=== PATIENT | male | born 1975 | race American Indian/Alaskan Native ===

== ENCOUNTER 2019-02-22 08:28 | Day surgery (SDC) | payer MEDICARE, OTHER ==
[2019-02-22] MEDS ORDERED: LACTATED RINGERS 1,000 ML IV SCH (10:00)
[2019-02-22] MEDS ORDERED: ANCEF/STERILE WATER 2 GM/20 ML IV NR (10:00)
--- NOTE | 2019-02-22 10:25 | Anesthesia Day of Surgery ---
Anesthesia Day of Surgery - Day of Surgery Patient Examined: Yes Patient H&P Reviewed: Yes Patient is NPO: Yes
--- NOTE | 2019-02-22 10:25 | Anesthesia Consultation ---
Anesthesia Consult and Med Hx Date of service: 02/22/19 - Airway Anesthetic Teeth Evaluation: Edentulous ROM Head & Neck: Adequate Mental/Hyoid Distance: Adequate Mallampati Class: Class I Intubation Access Assessment: Good - Pulmonary Exam CTA: Yes - Cardiac Exam Cardiac Exam: RRR - Pre-Operative Health Status ASA Pre-Surgery Classification: ASA3 Proposed Anesthetic Plan: General, MAC - Pulmonary Hx Smoking: No Hx Respiratory Symptoms: No COPD: No - Cardiovascular System Hx Hypertension: No Hx Heart Attack/AMI: No Hx Percutaneous Transluminal Coronary Angioplasty (PTCA): No Hx Cardia Arrhythmia: No - Central Nervous System Hx Seizures: No CVA: Yes (2005; mild residual right sided weakness ) - Gastrointestinal Hx Gastroesophageal Reflux Disease: Yes (well controlled) - Endocrine Hx Renal Disease: No (patient denies) Hx Liver Disease: No Hx Insulin Dependent Diabetes: No Hx Non-Insulin Dependent Diabetes: No Hx Thyroid Disease: No - Other Systems Hx Alcohol Use: Yes Hx Substance Use: Yes (last cocaine use 1 week ago) Hx Obesity: No - Additional Comments Anesthesia Medical History Comments: No hx anesthetic complications.
[2019-02-22] MEDS ORDERED: VERSED IV SCH (11:00)
[2019-02-22] MEDS ORDERED: XYLOCAINE MPF 2% ONE (11:08)
[2019-02-22] MEDS ORDERED: DIPRIVAN 10 MG/ML IV ONE (11:09)
[2019-02-22] MEDS ORDERED: DILAUDID ONE (11:09)
[2019-02-22] MEDS ORDERED: VERSED ONE (11:10)
[2019-02-22] MEDS ORDERED: NACL 0.9% IR ONE (11:21)
[2019-02-22] MEDS ORDERED: XYLOCAINE 1% 20 mL INFILTRATI ONE (11:40)
[2019-02-22] MEDS ORDERED: MARCAINE 0.5% INFILTRATI ONE (11:40)
--- NOTE | 2019-02-22 11:48 | Short Stay Summary ---
Short Stay Documentation Date of service: 02/22/19 - History Principal diagnosis: soft tissue mass right neck H&P: obtained from office - Allergies and Medications Current Medications: Allergies No Known Allergies Allergy (Verified 02/21/19 16:27) Home Medications Medication Instructions Recorded Confirmed Last Taken Type Atazanavir Sulfate [Reyataz] 300 mg PO QDAY 02/21/19 02/21/19 Unknown History Cholecalciferol Vit D3 [Vitamin D3 1,000 unit PO QDAY 02/21/19 02/21/19 Unknown History 1,000 UNIT TAB] Emtricitabine [Emtriva] 200 mg PO QDAY 02/21/19 02/21/19 Unknown History Folic Acid [Folvite] 1 mg PO QDAY 02/21/19 02/21/19 Unknown History Ranitidine HCl [Zantac 150 MG TAB] 150 mg PO QHS 02/21/19 02/21/19 Unknown History Ritonavir [Norvir] 100 mg PO QDAY 02/21/19 02/21/19 Unknown History Rosuvastatin Calcium [Crestor] 40 mg PO QHS 02/21/19 02/21/19 Unknown History Active Medications Cefazolin Sodium (Ancef/Sterile Water 2 Gm/20 Ml) 2 gm IV PREOP NR Stop: 02/22/19 14:00 Lactated Ringer's (Lactated Ringers) 1,000 mls @ 75 mls/hr IV DIRECT ARLIN Last Admin: 02/22/19 09:50 Dose: 75 mls/hr Documented by: Midazolam HCl (Versed) 2 mg IV PREOP ARLIN Stop: 02/22/19 23:59 Last Admin: 02/22/19 10:30 Dose: 2 mg Documented by: - Brief post op/procedure progress note Date of procedure: 02/22/19 Pre-op diagnosis: right neck soft tissue mass Post-op diagnosis: same Procedure: excision of soft tissue mass right neck Anesthesia: MAC, local Findings: 1 cm cyst excised from right neck Surgeon: SAMEER CARD Estimated blood loss: minimal Pathology: list (soft tissue mass right neck) Specimen disposition: to lab Condition: stable - Hospital course Hospital course: Pt observed in PACU and discharged to home in stable condition when criteria met - Disposition Condition at discharge: Good Disposition: DC-01 TO HOME OR SELFCARE Short Stay Discharge Plan Activity: no restrictions Diet: regular Wound: open to air, other (may remove outer dressing in 2 days. OK to shower tomorrow with outer dressing) Additional Instructions: please see printed discharge instructions Follow up with: [facility] [Primary Care Provider] - 7 Days SAMEER CARD DO [Staff Physician] - 14 Days Prescriptions: Ibuprofen 800 mg PO Q8H PRN #30 tablet PRN Reason: Pain, Moderate (4-6)
--- NOTE | 2019-02-22 14:16 | Post Anesthesia Evaluation ---
- Post Anesthesia Evaluation Patient Participated: Yes Airway Patent: Yes Stable Respiratory Function: Yes Nausea/Vomiting: No Temp > 96.8F: Yes Pain Manageable: Yes Adequeate Hydration: Yes Anesthesia Complications: No
[2019-02-22 20:44] VITALS: BP 122/82
--- NOTE | 2019-02-23 11:28 | Operative Report ---
PREOPERATIVE DIAGNOSIS: Right neck soft tissue mass. POSTOPERATIVE DIAGNOSIS: Right neck soft tissue mass. PROCEDURE: excision of soft tissue mass, right neck. ANESTHESIA: MAC local. FINDINGS: 1 cm cyst excised from the right neck. SURGEON: Aleah Polanco DO ESTIMATED BLOOD LOSS: Minimal. PATHOLOGY: Soft tissue mass, right neck. SPECIMEN: Disposition to lab. CONDITION: Stable. DISPOSITION: The patient is stable to PACU. INDICATIONS: The patient is a 43-year-old male who presented to the office with complaints of a mass on his right neck. He states that it has been swollen and red and tender and he was seen in the Emergency Room where they diagnosed him with an infected cyst. It was aspirated and he was placed on Keflex. After full course of antibiotics, the swelling did go down significantly. In the office, the area did not appear infected and the skin was clean and dry. Recommendation was to remove the cyst. All risks, benefits, alternatives to surgery were discussed with the patient. Questions answered. Consent was obtained. PROCEDURE IN DETAIL: The patient was identified in the preoperative area and taken back to the operating room and placed on operating table in supine position. After anesthesia was induced, the right neck was prepped and draped in the usual sterile fashion. A time-out performed. Local anesthetic was infiltrated into the skin and subcutaneous tissue surrounding the intended incision site with great care to prevent the infiltration into any vessels. An elliptical incision was made around the soft tissue mass using a 15 blade. Dissection was carried down through the skin and subcutaneous tissue using Bovie electrocautery. The remainder of the dissection was performed with blunt dissection using a hemostat and the soft tissue mass was from the surrounding tissue circumferentially and transected using electrocautery. The mass was examined and was consistent with a 1 cm cyst. The subcutaneous tissue was irrigated and hemostasis achieved using electrocautery. Once hemostasis was ensured, the deep dermal layer of the wound was closed using 3-0 Vicryl interrupted sutures. The skin incision was closed with 4-0 Monocryl subcuticular running stitch and skin glue. Once the skin glue was dry, Telfa was applied to this incision covered by a 4 x 4 gauze and secured with a Tegaderm to create a gentle compression dressing. At the end of the case, all sponge, instrument and sharp counts were correct x 2. The patient was awoken from anesthesia and taken to PACU in stable condition. JOB# [id number] NK/MARCELO
== END 2019-02-22 08:29 | disposition home or self-care (01) ==
LOC: OR 08:28
PROVIDERS: ATTEND Surgery
DX: L08.89 Other specified local infections of the skin and subcutaneous tissue (principal); R22.1 Localized swelling, mass and lump, neck; M79.89 Other specified soft tissue disorders; E78.00 Pure hypercholesterolemia, unspecified; K21.9 Gastro-esophageal reflux disease without esophagitis; F31.9 Bipolar disorder, unspecified; Z72.89 Other problems related to lifestyle; Z98.890 Other specified postprocedural states; Z79.899 Other long term (current) drug therapy; Z90.49 Acquired absence of other specified parts of digestive tract; Z86.73 Personal history of transient ischemic attack (TIA), and cerebral infarction without residual deficits
CPT/HCPCS: 11421; 88304; A4217; J0690; J1170; J2250; J2704; J7120; 88307

== ENCOUNTER 2020-09-29 17:05 | Emergency (ER) | payer OTHER ==
--- NOTE | 2020-09-29 17:39 | Event Note ---
ED Screening Note ED Screening Note: palpitations that began two hours ago CP right states it feels like tightness lightheaded mild SOB no n/v/d no fever no cough no leg swelling no recent surgery, travel, immobilization, no hormone use PMHx HIV, HTN, CKD, CVA no allergies to meds no tobacco +marijuana +ETOH +cocaine, this morning This initial assessment/diagnostic orders/clinical plan/treatment(s) is/are subject to change based on patients health status, clinical progression and re- assessment by fellow clinical providers in the ED. Further treatment and workup at subsequent clinical providers discretion. Patient/guardian urged not to elope from the ED as their condition may be serious if not clinically assessed and managed. Initial orders include: CP protocol
[2020-09-29 18:25] LABS: Basophils % (Auto) 0.6 % (0.0-1.8); Eosinophils # (Auto) 0.3 K/mm3 (0.0-0.4); Eosinophils % (Auto) 4.3 % (0.0-4.3); Hematocrit 49.6 % (35.5-45.6); Hemoglobin 17.5 gm/dl (11.8-15.2); Lymphocytes # (Auto) 1.7 K/mm3 (1.2-5.4); Lymphocytes % (Auto) 23.1 % (13.4-35.0); Mean Corpuscular HGB Conc 35 % (32-34); Mean Corpuscular Volume 92 fl (84-94); Monocytes # (Auto) 0.6 K/mm3 (0.0-0.8); Monocytes % (Auto) 8.4 % (0.0-7.3); Red Blood Count 5.37 M/mm3 (3.65-5.03); Red Cell Distribution Width 13.8 % (13.2-15.2)
[2020-09-29 18:29] LABS: Platelet Count 239 K/mm3 (140-440)
--- NOTE | 2020-09-29 18:41 | XRay Report ---
CHEST 2 VIEWS INDICATION / CLINICAL INFORMATION: Chest Pain. COMPARISON: None available. FINDINGS: SUPPORT DEVICES: None. HEART / MEDIASTINUM: No significant abnormality. LUNGS / PLEURA: No significant pulmonary or pleural abnormality. No pneumothorax. ADDITIONAL FINDINGS: No significant additional findings. IMPRESSION: 1. No acute abnormality of the chest. Signer Name: Ariel Gunn MD Signed: 09/29/2020 6:37 PM Workstation Name: [id number]
[2020-09-29 18:52] LABS: Alanine Aminotransferase 16 units/L (7-56); Albumin 4.4 g/dL (3.9-5); BUN/Creatinine Ratio 4; Blood Urea Nitrogen 7 mg/dL (9-20); Calcium 10.2 mg/dL (8.4-10.2); Hemolysis Index 20
--- NOTE | 2020-09-29 22:43 | Emergency Department Report ---
ED Chest Pain HPI - General Chief Complaint: Chest Pain Stated Complaint: CHEST PAIN Time Seen by Provider: 09/29/20 17:36 Source: patient, EMS Mode of arrival: Ambulatory Limitations: No Limitations - History of Present Illness Initial Comments: Patient is a 45-year-old F [place] male who is presenting with chest discomfort. States it started earlier today and is starting to subside on its own. States he has some dizziness and mild shortness of breath as well. Patient had just snorted cocaine when the chest pain started. Patient has used cocaine for several years but states that the first time he has ever had these type symptoms. He denies nausea vomiting diarrhea cough cold congestion. MD Complaint: chest pain - Related Data Home Medications Medication Instructions Recorded Confirmed Last Taken Atazanavir Sulfate [Reyataz] 300 mg PO QDAY 02/21/19 02/21/19 Unknown Cholecalciferol Vit D3 [Vitamin D3 1,000 unit PO QDAY 02/21/19 02/21/19 Unknown 1,000 UNIT TAB] Emtricitabine [Emtriva] 200 mg PO QDAY 02/21/19 02/21/19 Unknown Folic Acid [Folvite] 1 mg PO QDAY 02/21/19 02/21/19 Unknown Ritonavir 100 mg PO QDAY 02/21/19 02/21/19 Unknown Rosuvastatin Calcium [Crestor] 40 mg PO QHS 02/21/19 02/21/19 Unknown raNITIdine HCl [Zantac] 150 mg PO QHS 02/21/19 02/21/19 Unknown Previous Rx's Medication Instructions Recorded Last Taken Type Ibuprofen [Ibuprofen 800] 800 mg PO Q8H PRN #30 tablet 02/22/19 Unknown Rx Allergies Allergy/AdvReac Type Severity Reaction Status Date / Time No Known Allergies Allergy Verified 02/21/19 16:27 Heart Score - HEART Score History: Slightly suspicious EKG: Normal Age: 45-65 Risk factors: 1-2 risk factors Troponin: < normal limit HEART Score: 2 ED Review of Systems ROS: Stated complaint: CHEST PAIN Other details as noted in HPI Comment: All other systems reviewed and negative ED Past Medical Hx - Past Medical History Previous Medical History?: Yes Hx Hypertension: No Hx CVA: No Hx Heart Attack/AMI: No Hx Congestive Heart Failure: No Hx Diabetes: No Hx Deep Vein Thrombosis: No Hx Pulmonary Embolism: No Hx GERD: Yes Hx Liver Disease: No Hx Renal Disease: No (patient denies) Hx Arthritis: No Hx Headaches / Migraines: No Hx Seizures: No Hx Kidney Stones: No Hx Psychiatric Treatment: No Hx COPD: No Hx Tuberculosis: No Hx Dementia: No Hx HIV: Yes - Surgical History Past Surgical History?: Yes Hx Coronary Stent: No Hx Open Heart Surgery: No Hx Pacemaker: No Hx Internal Defibrillator: No Hx Cholecystectomy: Yes Hx Appendectomy: No Hx Breast Surgery: No - Social History Smoking Status: Never Smoker Substance Use Type: Alcohol, Cocaine, Marijuana, Prescribed - Medications Home Medications: Home Medications Medication Instructions Recorded Confirmed Last Taken Type Atazanavir Sulfate [Reyataz] 300 mg PO QDAY 02/21/19 02/21/19 Unknown History Cholecalciferol Vit D3 [Vitamin D3 1,000 unit PO QDAY 02/21/19 02/21/19 Unknown History 1,000 UNIT TAB] Emtricitabine [Emtriva] 200 mg PO QDAY 02/21/19 02/21/19 Unknown History Folic Acid [Folvite] 1 mg PO QDAY 02/21/19 02/21/19 Unknown History Ritonavir 100 mg PO QDAY 02/21/19 02/21/19 Unknown History Rosuvastatin Calcium [Crestor] 40 mg PO QHS 02/21/19 02/21/19 Unknown History raNITIdine HCl [Zantac] 150 mg PO QHS 02/21/19 02/21/19 Unknown History Ibuprofen [Ibuprofen 800] 800 mg PO Q8H PRN #30 tablet 02/22/19 Unknown Rx ED Physical Exam - General Limitations: No Limitations General appearance: alert, in no apparent distress - Head Head exam: Present: atraumatic, normocephalic - Eye Eye exam: Present: normal appearance - ENT ENT exam: Present: mucous membranes moist - Neck Neck exam: Present: normal inspection - Respiratory Respiratory exam: Present: normal lung sounds bilaterally. Absent: respiratory distress, wheezes, rales, rhonchi - Cardiovascular Cardiovascular Exam: Present: regular rate, normal rhythm. Absent: systolic murmur, diastolic murmur, rubs, gallop - GI/Abdominal GI/Abdominal exam: Present: soft, normal bowel sounds. Absent: distended, tende rness, guarding, rebound - Rectal Rectal exam: Present: deferred - Extremities Exam Extremities exam: Present: normal inspection - Back Exam Back exam: Present: normal inspection - Neurological Exam Neurological exam: Present: alert, oriented X3 - Psychiatric Psychiatric exam: Present: normal affect, normal mood - Skin Skin exam: Present: warm, dry, intact, normal color. Absent: rash ED Course Vital Signs 09/29/20 17:31 Temperature 98.1 F Pulse Rate 97 H Respiratory 18 Rate Blood Pressure 150/109 O2 Sat by Pulse 96 Oximetry ED Medical Decision Making - Lab Data Result diagrams: 09/29/20 18:13 09/29/20 18:13 - EKG Data -: EKG Interpreted by Pr EKG shows normal: sinus rhythm, axis, intervals, QRS complexes, ST-T waves Rate: normal - EKG Data Interpretation: normal EKG - Radiology Data CXR WNL - Medical Decision Making Patient encouraged to discontinue his cocaine use. Patient has had 2 - troponins and his heart score is low and he meets criteria for discharge. Patient given referral to cardiology. Critical care attestation.: If time is entered above; I have spent that time in minutes in the direct care of this critically ill patient, excluding procedure time. ED Disposition Clinical Impression: Atypical chest pain, Cocaine abuse Disposition: DC-01 TO HOME OR SELFCARE Is pt being admited?: No Does the pt Need Aspirin: No Condition: Stable Instructions: Chest Pain (ED), Nonspecific Chest Pain, Adult, Stimulant Use D isorder-Cocaine Additional Instructions: referral to cardiology sent as well Referrals: [facility] [Primary Care Provider] - 3-5 Days Time of Disposition: 22:44
[2020-09-29 22:59] VITALS: BP 148/90
== END 2020-09-29 23:05 | disposition home or self-care (01) ==
LOC: ED 17:05
DX: R07.89 Other chest pain (principal); K21.9 Gastro-esophageal reflux disease without esophagitis; Z21 Asymptomatic human immunodeficiency virus [HIV] infection status; F12.10 Cannabis abuse, uncomplicated; F14.10 Cocaine abuse, uncomplicated; Z90.49 Acquired absence of other specified parts of digestive tract; Z98.890 Other specified postprocedural states; Z79.1 Long term (current) use of non-steroidal anti-inflammatories (NSAID); Z79.899 Other long term (current) drug therapy
CPT/HCPCS: 36415; 71046; 80053; 82550; 83735; 84443; 84484; 85025; 93005